=== PATIENT | female | born 1985 | race African-American/Black ===

== ENCOUNTER 2017-04-11 20:04 | Inpatient (IN) | payer MEDICAID ==
[~2017-04-11] VITALS: Ht 170.2 cm; Wt 105.0 kg
[2017-04-11 20:05] VITALS: BP 142/85; PULSE 78; RESP 16; TEMP 97.6; O2SAT 99
--- NOTE | 2017-04-11 21:12 | PD ---
HPI Chief Complaint: Psychiatric Symptoms Time Seen by Provider: 21:04 Travel History International Travel<30 days: No Contact w/Intl Traveler<30days: No Traveled to known affect area: No History of Present Illness HPI 31-year-old female with history of PTSD, anxiety, depression, presents to the emergency department voluntarily for psychiatric evaluation. Patient states that she recently moved from [place]. She has not established psychiatric care since moving from there and has been out of her medication. She has been very overwhelmed with the move and trying to get established down here. She does have 2 sons, one medicine [place] and one here that has ADHD and ODD. Patient states she's been very overwhelmed with all of this and is having thoughts of harming herself. She states that she has blackout periods where she is unaware of anything that is going on around her. She has been drinking alcohol to self medicate. Denies any illicit drug use. Denies any other medical history. She has no other symptoms to report. [facility] Past Medical History Anxiety: Yes Depression: Yes Medical other: Yes (ptsd ) ?: Not LMP: 03/28/17 Past Surgical History Abdominal Surgery: Yes (leap ) Other Surgery: Yes Social History Alcohol Use: Yes Tobacco Use: No Substance Use: Yes (marijuana ) Allergies-Medications (Allergen,Severity, Reaction): Coded Allergies: No Known Allergies (Unverified , 04/11/17) Reported Meds & Prescriptions Reported Meds & Active Scripts Active No Active Prescriptions or Reported Medications Review of Systems Except as stated in HPI: all other systems reviewed are Neg Physical Exam Narrative GENERAL: Well-nourished female patient, ambulatory and in no acute distress. SKIN: Focused skin assessment warm/dry. HEAD: Atraumatic. Normocephalic. EYES: Pupils equal and round. No scleral icterus. No injection or drainage. ENT: No nasal bleeding or discharge. Mucous membranes pink and moist. NECK: Trachea midline. No JVD. CARDIOVASCULAR: Regular rate and rhythm. No murmur appreciated. RESPIRATORY: No accessory muscle use. Clear to auscultation. Breath sounds equal bilaterally. GASTROINTESTINAL: Abdomen soft, non-tender, nondistended. Hepatic and splenic margins not palpable. MUSCULOSKELETAL: No obvious deformities. No clubbing. No cyanosis. No edema. NEUROLOGICAL: Awake and alert. No obvious cranial nerve deficits. Motor grossly within normal limits. Normal speech. PSYCHIATRIC: Appropriate mood and affect; insight and judgment normal. Data Data Last Documented VS Vital Signs Date Time Temp Pulse Resp B/P (MAP) Pulse Ox O2 Delivery O2 Flow Rate FiO2 04/12/17 00:17 04/11/17 20:05 97.6 78 16 99 Room Air Orders Orders Complete Blood Count With Diff (04/11/17 21:12) Basic Metabolic Panel (Bmp) (04/11/17 21:12) Ed Urine Pregnancytest Poc (04/11/17 21:12) Psych Screen (04/11/17 21:12) Drug Screen, Random Urine (04/11/17 21:12) Alcohol (Ethanol) (04/11/17 21:12) Admit Order (Ed Use Only) (04/12/17 ) Admit To Inpatient Psych (04/12/17 ) Code Status (04/12/17 00:19) Vital Signs (Adult) NATALIYA.Q12H.E (04/12/17 00:19) Activity Oob Ad [place] (04/12/17 00:19) Level Of Observation (Psych) (04/12/17 00:19) Diet Regular Basic (04/12/17 Breakfast) Acetaminophen (Tylenol) (04/12/17 00:30) Magnesium Hydroxide Liq (Milk Of Magnesi (04/12/17 00:30) Al-Mag Hy-Si 40-40-4 Mg/Ml Liq (Mag-Al P (04/12/17 00:30) Trazodone (Desyrel) (04/12/17 00:30) Hydroxyzine Hcl (Atarax) (04/12/17 00:30) Basic Metabolic Panel (Bmp) (04/13/17 06:00) Thyroid Stimulating Hormone (04/13/17 06:00) Lipid Profile (04/13/17 06:00) Hemoglobin (Hgb) A1c (04/13/17 06:00) Labs Laboratory Tests Test 04/11/17 21:42 White Blood Count 7.5 TH/MM3 Red Blood Count 4.94 MIL/MM3 Hemoglobin 13.6 GM/DL Hematocrit 39.8 % Mean Corpuscular Volume 80.7 FL Mean Corpuscular Hemoglobin 27.5 PG Mean Corpuscular Hemoglobin Concent 34.1 % Red Cell Distribution Width 13.2 % Platelet Count 341 TH/MM3 Mean Platelet Volume 7.6 FL Neutrophils (%) (Auto) 47.6 % Lymphocytes (%) (Auto) 43.9 % Monocytes (%) (Auto) 6.9 % Eosinophils (%) (Auto) 0.7 % Basophils (%) (Auto) 0.9 % Neutrophils # (Auto) 3.6 TH/MM3 Lymphocytes # (Auto) 3.3 TH/MM3 Monocytes # (Auto) 0.5 TH/MM3 Eosinophils # (Auto) 0.1 TH/MM3 Basophils # (Auto) 0.1 TH/MM3 CBC Comment DIFF FINAL Differential Comment Blood Urea Nitrogen 11 MG/DL Creatinine 0.80 MG/DL Random Glucose 75 MG/DL Calcium Level 8.6 MG/DL Sodium Level 141 MEQ/L Potassium Level 3.9 MEQ/L Chloride Level 108 MEQ/L Carbon Dioxide Level 25.7 MEQ/L Anion Gap 7 MEQ/L Estimat Glomerular Filtration Rate 103 ML/MIN Urine Opiates Screen NEG Urine Barbiturates Screen NEG Urine Amphetamines Screen NEG Urine Benzodiazepines Screen NEG Urine Cocaine Screen NEG Urine Cannabinoids Screen NEG Ethyl Alcohol Level LESS THAN 3 MG/DL MDM Medical Decision Making Medical Screen Exam Complete: Yes Emergency Medical Condition: Yes Medical Record Reviewed: Yes Differential Diagnosis Mood disorder versus personality disorder versus adjustment reaction disorder Narrative Course 31-year-old female presents to the emergency department voluntarily for psychiatric evaluation. Patient appears without distress. Vital signs are stable. She is having thoughts of harming herself and shares with me a plan of overdose with pills. Patient at this time remain voluntary. Lab work is ordered for medical clearance. Laboratory Tests Test 04/11/17 21:42 White Blood Count 7.5 TH/MM3 Red Blood Count 4.94 MIL/MM3 Hemoglobin 13.6 GM/DL Hematocrit 39.8 % Mean Corpuscular Volume 80.7 FL Mean Corpuscular Hemoglobin 27.5 PG Mean Corpuscular Hemoglobin Concent 34.1 % Red Cell Distribution Width 13.2 % Platelet Count 341 TH/MM3 Mean Platelet Volume 7.6 FL Neutrophils (%) (Auto) 47.6 % Lymphocytes (%) (Auto) 43.9 % Monocytes (%) (Auto) 6.9 % Eosinophils (%) (Auto) 0.7 % Basophils (%) (Auto) 0.9 % Neutrophils # (Auto) 3.6 TH/MM3 Lymphocytes # (Auto) 3.3 TH/MM3 Monocytes # (Auto) 0.5 TH/MM3 Eosinophils # (Auto) 0.1 TH/MM3 Basophils # (Auto) 0.1 TH/MM3 CBC Comment DIFF FINAL Differential Comment Blood Urea Nitrogen 11 MG/DL Creatinine 0.80 MG/DL Random Glucose 75 MG/DL Calcium Level 8.6 MG/DL Sodium Level 141 MEQ/L Potassium Level 3.9 MEQ/L Chloride Level 108 MEQ/L Carbon Dioxide Level 25.7 MEQ/L Anion Gap 7 MEQ/L Estimat Glomerular Filtration Rate 103 ML/MIN Urine Opiates Screen NEG Urine Barbiturates Screen NEG Urine Amphetamines Screen NEG Urine Benzodiazepines Screen NEG Urine Cocaine Screen NEG Urine Cannabinoids Screen NEG Ethyl Alcohol Level LESS THAN 3 MG/DL Patient is medically cleared to undergo psychiatric screening for further evaluation and disposition. Mental health screening discussed with the patient. Psychiatric screen ordered. Diagnosis Primary Impression: Adjustment disorder Qualified Codes: F43.23 - Adjustment disorder with mixed anxiety and depressed mood Scripts No Active Prescriptions or Reported Meds Condition: Stable Cindy Avila Apr 11, 2017 21:12
[2017-04-11 22:10] LABS: AUTOMATED NEUTROPHIL # 3.6 TH/MM3 (1.8-7.7); BASOPHIL # 0.1 TH/MM3 (0-0.2); BASOPHIL % 0.9 % (0.0-2.0); EOSINOPHIL # 0.1 TH/MM3 (0-0.4); EOSINOPHIL % 0.7 % (0.0-4.0); HEMATOCRIT 39.8 % (35.0-46.0); HEMOGLOBIN 13.6 GM/DL (11.6-15.3); LYMPH % 43.9 % (9.0-44.0); LYMPHOCYTE # 3.3 TH/MM3 (1.0-4.8); MEAN CELL VOLUME 80.7 FL (80.0-100.0); MEAN CORPUSCULAR HEMOGLOBIN 27.5 PG (27.0-34.0); MEAN CORPUSCULAR HGB CONC 34.1 % (32.0-36.0); MEAN PLATELET VOLUME 7.6 FL (7.0-11.0); MONO % 6.9 % (0.0-8.0); MONOCYTE # 0.5 TH/MM3 (0-0.9); NEUT % 47.6 % (16.0-70.0); PLATELET COUNT 341 TH/MM3 (150-450); RED BLOOD COUNT 4.94 MIL/MM3 (4.00-5.30); RED CELL DISTRIBUTION WIDTH 13.2 % (11.6-17.2); WHITE BLOOD COUNT 7.5 TH/MM3 (4.0-11.0)
[2017-04-11 22:30] LABS: BICARBONATE 25.7 MEQ/L (21.0-32.0); BLOOD UREA NITROGEN 11 MG/DL (7-18); CALCIUM 8.6 MG/DL (8.5-10.1); CHLORIDE 108 MEQ/L (98-107); GLOMERULAR FILTRATION RATE 103 ML/MIN (>89); GLUCOSE,RANDOM 75 MG/DL (74-106); SODIUM (NA) 141 MEQ/L (136-145)
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
[2017-04-12] MEDS ORDERED: MAGNESIUM HYDROXIDE SUSP 30 ML CUP PO PRN (00:30)
[2017-04-12] MEDS ORDERED: ACETAMINOPHEN 325 MG TAB PO PRN (00:30)
[2017-04-12] MEDS ORDERED: traZODone HCL 50 MG TAB PO PRN (00:30)
[2017-04-12] MEDS ORDERED: ALUMINUM/MAGNESIUM/SIMETH 30 ML CUP PO PRN (00:30)
[2017-04-12] MEDS ORDERED: hydrOXYzine HCL 50 MG TAB PO PRN (00:30)
[2017-04-12 01:10] VITALS: BP 138/84; PULSE 74; RESP 16; TEMP 98.5; O2SAT 100
[2017-04-12 13:00] LABS: ALBUMIN 3.4 GM/DL (3.4-5.0); ALT (GPT) 23 U/L (10-53); AST (GOT) 13 U/L (15-37); DIRECT BILIRUBIN ADULT LESS THAN 0.1 MG/DL (0.0-0.2)
[2017-04-12 13:02] LABS: ALKALINE PHOSPHATASE 99 U/L (45-117); INDIRECT BILIRUBIN 0.1 MG/DL (0.0-0.8); TOTAL BILIRUBIN ADULT 0.2 MG/DL (0.2-1.0); TOTAL PROTEIN 7.8 GM/DL (6.4-8.2)
[2017-04-12] MEDS: SERTRALINE HCL 50 MG TAB PO SCH (15:51)
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
[2017-04-12 18:18] VITALS: BP 117/76; PULSE 72; RESP 20; TEMP 98; O2SAT 100
[2017-04-12] MEDS: ZOLPIDEM TARTRATE 5 MG TAB PO PRN (22:17)
[2017-04-13 05:44] VITALS: BP 117/71; PULSE 89; RESP 17; TEMP 98; O2SAT 98
[2017-04-13] MEDS: SERTRALINE HCL 50 MG TAB PO SCH (08:50)
[2017-04-13 13:19] LABS: BICARBONATE 28.3 MEQ/L (21.0-32.0); BLOOD UREA NITROGEN 11 MG/DL (7-18); CALCIUM 8.8 MG/DL (8.5-10.1); CHLORIDE 105 MEQ/L (98-107); CHOLESTEROL 171 MG/DL (120-200); CREATININE 0.81 MG/DL (0.50-1.00); GLOMERULAR FILTRATION RATE 101 ML/MIN (>89); GLUCOSE,RANDOM 76 MG/DL (74-106); SODIUM (NA) 139 MEQ/L (136-145)
[2017-04-13 13:30] LABS: CHOLESTEROL/ HDL RATIO 2.32 RATIO; HDL CHOLESTEROL 73.4 MG/DL (40.0-60.0); LDL CHOLESTEROL 77 MG/DL (0-99); TRIGLYCERIDES 102 MG/DL (42-150)
[2017-04-13 13:54] LABS: HEMOGLOBIN A1C 5.6 % (4.3-6.0)
--- NOTE | 2017-04-13 14:51 | HHI.PYPN ---
Subjective Chief Complaint: worsening depressive symptoms along with suicidal ideations Remarks Patient was seen and case discussed with nursing. Patient notes some mild improvement in mood. She describes it as "not as down today." She does remain guarded, constricted, mild the irritable. Largely seclusive and reading a book. She denies suicidal or homicidal ideation intent or plan. Tolerating medications well Mental Status Examination Appearance: Appropriate Consciousness: Alert Orientation: x4 Motor Activity: Normal gait Speech: Unremarkable Language: Adequate Fund of Knowledge: Adequate Attention and Concentration: Adequate Memory: Unremarkable Mood: Sad, Anxious Affect: Sad, Other (tearful at times) Thought Process & Associations: Intact, Logical, Goal directed Thought Content: Appropriate Hallucination Type: None Delusion Type: None Suicidal Ideation: No Suicidal Plan: No Suicidal Intention: No Homicidal Ideation: No (at times feels so angry that she has thoughts of wanting to hurt her son but no active plan) Homicidal Plan: No Homicidal Intention: No Insight: Adequate Judgment: Adequate Results Labs Test 04/13/17 11:46 Blood Urea Nitrogen 11 MG/DL Creatinine 0.81 MG/DL Random Glucose 76 MG/DL Calcium Level 8.8 MG/DL Sodium Level 139 MEQ/L Potassium Level 3.7 MEQ/L Chloride Level 105 MEQ/L Carbon Dioxide Level 28.3 MEQ/L Anion Gap 6 MEQ/L Estimat Glomerular Filtration Rate 101 ML/MIN Hemoglobin A1c 5.6 % Triglycerides Level 102 MG/DL Cholesterol Level 171 MG/DL LDL Cholesterol 77 MG/DL HDL Cholesterol 73.4 MG/DL Cholesterol/HDL Ratio 2.32 RATIO Thyroid Stimulating Hormone 3rd Gen 1.700 uIU/ML Vitals/IOs Vital Signs Date Time Temp Pulse Resp B/P (MAP) Pulse Ox O2 Delivery O2 Flow Rate FiO2 04/13/17 05:44 98.0 89 17 117/71 (86) 98 04/11/17 20:05 Room Air Assessment & Plan Problem List: (1) Adjustment disorder with mixed anxiety and depressed mood ICD Codes: F43.23 - Adjustment disorder with mixed anxiety and depressed mood Assessment & Plan Continue current treatment plan Justification for Cont. Inpt. Patient would decompensate in a less restrictive setting Tino Parks DO Apr 13, 2017 14:51
[2017-04-13 18:16] VITALS: BP 133/77; PULSE 64; RESP 17; TEMP 98.1; O2SAT 99
[2017-04-13] MEDS: ZOLPIDEM TARTRATE 5 MG TAB PO PRN (21:36)
[2017-04-14 05:14] VITALS: BP 113/77; PULSE 64; RESP 16; TEMP 98.3; O2SAT 98
[2017-04-14] MEDS: SERTRALINE HCL 50 MG TAB PO SCH (08:13)
--- NOTE | 2017-04-14 13:15 | HHI.PYPN ---
Subjective Chief Complaint: worsening depressive symptoms along with suicidal ideations Remarks Patient was seen and case discussed with nursing. Per nursing, patient remains largely's room and spending her time reading books. Describes her mood today is "better mood." She is goal oriented and is asking about discharge. Not suicidal homicidal ideation intent or plan. Mental Status Examination Appearance: Appropriate Consciousness: Alert Orientation: x4 Motor Activity: Normal gait Speech: Unremarkable Language: Adequate Fund of Knowledge: Adequate Attention and Concentration: Adequate Memory: Unremarkable Mood: Sad, Anxious Affect: Other (constricted) Thought Process & Associations: Intact, Logical, Goal directed Thought Content: Appropriate Hallucination Type: None Delusion Type: None Suicidal Ideation: No Suicidal Plan: No Suicidal Intention: No Homicidal Ideation: No (at times feels so angry that she has thoughts of wanting to hurt her son but no active plan) Homicidal Plan: No Homicidal Intention: No Insight: Adequate Judgment: Adequate Results Vitals/IOs Vital Signs Date Time Temp Pulse Resp B/P (MAP) Pulse Ox O2 Delivery O2 Flow Rate FiO2 04/14/17 05:14 98.3 64 16 113/77 (89) 98 04/11/17 20:05 Room Air Assessment & Plan Problem List: (1) Adjustment disorder with mixed anxiety and depressed mood ICD Codes: F43.23 - Adjustment disorder with mixed anxiety and depressed mood Assessment & Plan Continue current treatment plan Justification for Cont. Inpt. Patient will decompensate in a less restrictive setting Tino Parks DO Apr 14, 2017 13:15
[2017-04-14 16:03] VITALS: BP 135/66; PULSE 58; RESP 18; TEMP 98.3; O2SAT 95
[2017-04-14] MEDS: ZOLPIDEM TARTRATE 5 MG TAB PO PRN (21:43)
[2017-04-15 06:36] VITALS: BP 107/67; PULSE 68; RESP 16; TEMP 98.1; O2SAT 98
[2017-04-15] MEDS: SERTRALINE HCL 50 MG TAB PO SCH (08:30)
[2017-04-15] MEDS ORDERED: ZOLO50TA PO (13:35)
[2017-04-15] MEDS ORDERED: AMBI5TAB PO (13:35)
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
== END 2017-04-15 15:55 | disposition home or self-care (01) | DRG 882 ==
LOC: NEPD 20:04 → NEDA 04-12 00:23 → H260 04-12 01:10
PROVIDERS: ADMIT Student in an Organized Health Care Education/Training Program; ATTEND Student in an Organized Health Care Education/Training Program
DX: F43.23 Adjustment disorder with mixed anxiety and depressed mood (principal); R45.851 Suicidal ideations; F43.10 Post-traumatic stress disorder, unspecified; Z62.810 Personal history of physical and sexual abuse in childhood; Z81.8 Family history of other mental and behavioral disorders; Z91.5 Personal history of self-harm
CPT/HCPCS: 80048; 80061; 80076; 80307; 83036; 84443; 84703; 85025; 99285